=== PATIENT | female | born 1985 | race Hispanic/Latino ===

== ENCOUNTER 2019-12-08 18:43 | Inpatient (IN) | payer MEDICAID, OTHER, SELFPAY ==
[2019-12-08] MEDS ORDERED: ONDANSETRON 4 MG (ODT) TAB PO PRN (19:00)
[2019-12-08] MEDS ORDERED: Oxycodone HCl/Acetaminophen 1 TAB TAB PO PRN (19:00)
[2019-12-08] MEDS ORDERED: METHYLERGONOVINE 0.2 MG TAB PO PRN (19:00)
[2019-12-08] MEDS ORDERED: IBUPROFEN 200 MG TAB PO PRN (19:00)
[2019-12-08] MEDS ORDERED: METHYLERGONOVINE 0.2MG/ML AMP IM PRN (19:00)
[2019-12-08] MEDS ORDERED: Ringers Lactate 1,000 ML IV SCH (19:00)
--- NOTE | 2019-12-08 19:08 | P.BOP ---
Preoperative diagnosis: 38 wk , precipitous delivery in parking lot Postoperative diagnosis: viable female Primary procedure: delivery of placenta Secondary procedure: repair of 2 degree perineal laceration. Estimated blood loss: 300ml Anesthesia: Local Complications: Other (precipitous, non sterile delivery) Transferred to: Other (274) Condition: Good
[2019-12-08 20:33] VITALS: BMI 28.0
[2019-12-08 20:54] LABS: Absolute Lymphocytes (CBC) 1.4 K/uL (0.7-4.9); Basophils % 0.3 % (0-1.3); Hematocrit 35.4 % (36.0-45.0); Lymphocytes % 6.4 % (15.3-44.8); RBC Red Blood Cell Count 3.93 M/uL (3.86-4.86)
[2019-12-08] MEDS ORDERED: OXYTOCIN/LR 20 UNIT/1,000 ML BAG IV ONE (21:59)
[2019-12-08 22:18] LABS: RPR (Rapid Plasma Reagin) NON-REACT (NON-REACT)
[2019-12-08 22:37] LABS: Blood Morphology Comment NOT SEEN (NOT SEEN); Platelet Estimate ADEQ
--- NOTE | 2019-12-08 23:04 | DN ---
Surgeon: Tone Bach MD History: The patient is a 34-year-old female, 4, para 3-0-0-3, admitted to Labor and Delivery post delivery with a placenta still intact. Apparently, her sister delivered her in her car in the hospital parking lot. She was then subsequently brought to Labor and Delivery with placenta in place. Cord blood was obtained. Placenta was spontaneously expelled. Intrauterine exa mination revealed no retained placental fragments. Mild atony noted. She was given Methergine IM wh ile IV was being started. She suffered a second-degree perineal laceration, which was repaired in th e usual fashion with local infiltration of 2% Xylocaine and 3-0 Vicryl suture. Estimated total blood loss approximately 300 mL. Quantitative blood loss to be determined. EMILY/HENRIK Voice ID: [id number] Report ID: [id number]
--- NOTE | 2019-12-08 23:04 | PREOPHP ---
Date of Admission: 12/08/2019 History Of Present Illness: Ms. Albarran is a 34-year-old female, 4, para 3-0- 0-3, at approximately 38 weeks gestation. She has been seen through the [facility] without complica tions. She noticed the onset of contractions, was going to go to [place], but did not think she wo uld make it, so drove and came to our hospital. Her sister delivered her baby in her car in the [facility] parking lot. She was then subsequently brought to Labor and Delivery. She has been followed th rough [facility] without apparent complications. Past Medical History: Includes delivery in 2006, 2012, 2018, uncomplicated vaginal deliveries withou t blood pressure problems or sugar problems. She has no other hospitalizations, accidents, illnesses , injuries. Medications: She is on her medications on a regular basis other than vitamins. Allergies: SHE HAS NO KNOWN ALLERGIES. Social History: She does not smoke. Family History: Noncontributory. Review of Systems: She reports no recent cough, cold, fever, or chills. No recent nausea or vomiting. No breast knots or lumps. No bowel or bladder issues. Her infant has been active. Her membranes ruptured approxima tely 45 minutes ago. Physical Examination: General: female, mild discomfort. Neck: Supple without adenopathy or thyromegaly. Lungs: Clear. Cardiac: Regular rate and rhythm without murmurs. Breasts: Not examined. Abdomen: Nontender. Pelvic, she suffered a second-degree perineal laceration at the time of deliver y, now repaired. Extremities: No cyanosis, clubbing, or edema. Impression: A 38 plus week , now delivered. Plan: We will request records and will expect routine care. We will watch for hemorrhage secondary to precipitous delivery. EMILY/HENRIK Voice ID: [id number]
[2019-12-09 04:58] LABS: Absolute Lymphocytes (CBC) 1.6 K/uL (0.7-4.9); Basophils % 0.3 % (0-1.3); Hematocrit 30.4 % (36.0-45.0); Lymphocytes % 11.3 % (15.3-44.8); MPV 9.8 fL (7.6-11.3); RBC Red Blood Cell Count 3.39 M/uL (3.86-4.86)
[2019-12-09] MEDS ORDERED: Ringers Lactate 1,000 ML IV ONE (07:04)
[2019-12-09] MEDS ORDERED: METHYLERGONOVINE 0.2MG/ML AMP IM ONE (07:06)
[2019-12-09] MEDS ORDERED: LIDOCAINE 1% MPF 30 ML VIAL ONE (07:06)
[2019-12-09] MEDS ORDERED: OXYTOCIN/LR 20 UNIT/1,000 ML BAG IV ONE (07:06)
--- NOTE | 2019-12-09 07:15 | P.PN ---
Date of Service: 12/09/19 S-No complaints, denies being sick before delivery O-Afeb, vs stable, fundus nontender. WBC's on admit, 22K, 14K this am A-Satisfactory P-Observe until tomorrow am, per verbal report, she was neg strep status.
[2019-12-10 07:50] VITALS: BP 112/69; TEMP 97.7
--- NOTE | 2019-12-11 02:50 | DS ---
Date of Discharge: 12/10/2019 Discharge Diagnosis: Term , delivered. Complications: Precipitous, out of hospital delivery. Procedures: Delivery of placenta, repair of second-degree perineal laceration, local infiltration of anesthesia. Hospital Course: Patient is a 34-year-old female, 4, para 3-0-0-3, who deli dee in a hospital parking lot. She then was transferred to Labor and Delivery where placenta was d elivered and repair of second-degree perineal laceration was performed. was a 7-pound 15-ounc e female infant, 9 and 9. She was dismissed on the first day, ambulatory, on a nadya ct diet with routine post vaginal delivery to be seen back in the [facility] where she had been receiving care. She is Rh positive blood type. She had an admission hemoglobin and hematoc rit of 11.8 and 35.4 with 22,000 white blood cell count. On her first day, she had a hemo globin and hematocrit 10.1 and 30.4, and a white blood cell count has gone down to 14.2. She had no obvious signs of infection, remained afebrile during the entirety of her hospital stay and was beta s trep negative on testing. She was dismissed with the usual precautions, to continue taking her iron and vitamins. EMILY/HENRIK Voice ID: [id number] Report ID: [id number]
[2019-12-12 20:06] LABS: HBsAG Nonreactive (Nonreactive)
== END 2019-12-10 09:00 | disposition home or self-care (01) | DRG 807 ==
LOC: 2ND-WCNRSY 18:43 → EDBD 18:43 → 2ND-WC 19:23
PROVIDERS: ADMIT Specialist; ATTEND Specialist
PROC: 10E0XZZ Delivery of Products of Conception, External Approach (ICD-10-PCS; principal; 2019-12-08)
PROC: 0KQM0ZZ Repair Perineum Muscle, Open Approach (ICD-10-PCS; 2019-12-08)
DX: O62.3 Precipitate labor (principal); Z37.0 Single live birth; O70.1 Second degree perineal laceration during delivery; Z3A.38 38 weeks gestation of pregnancy
CPT/HCPCS: 36415; 82947; 85025; 86592; 86762; 86850; 86900; 86901; 87340; G0433; J2210; J2590; J7120